=== PATIENT | female | born 1965 | race Caucasian/White ===

== ENCOUNTER 2017-08-27 15:19 | Outpatient (CLI) | payer BC ==
--- NOTE | 2017-08-27 20:12 | RAD ---
CHEST TWO VIEWS 08/27/17 HISTORY: Chest pain. COMPARISON: 03/16/15. FINDINGS: Cardiac silhouette and pulmonary vasculature are unremarkable. Mediastinum is midline. There is no co nfluent air space consolidation, pneumothorax or pleural fluid evident. IMPRESSION: No active cardiopulmonary abnormalities are demonstrated. POS: [facility]
== END 2017-08-27 15:20 | disposition home or self-care (01) ==
LOC: RAD-FRANK 15:19
PROVIDERS: ATTEND Nurse Practitioner Family
DX: R07.9 Chest pain, unspecified (principal)
CPT/HCPCS: 71046